=== PATIENT | female | born 1990 | race Caucasian/White ===

== ENCOUNTER 2016-11-02 16:45 | Inpatient (IN) | payer BC ==
[~2016-11-02] VITALS: Ht 170.2 cm; Wt 112.0 kg
[2016-11-02 17:30] LABS: HEMOGLOBIN 14.2 gm/dl (12.3-15.3); RED BLOOD COUNT 4.68 M/UL (4.00-5.10); WHITE BLOOD COUNT 11.6 K/UL (4.5-11.0)
[2016-11-04 03:03] LABS: HEMOGLOBIN 12.5 gm/dl (12.3-15.3)
[2016-11-05] MEDS ORDERED: TRANDATE 200 M200 MG PO (11:09)
== END 2016-11-05 14:12 | disposition home or self-care (01) | DRG 775 ==
LOC: OB 16:45
PROVIDERS: Obstetrics & Gynecology; ADMIT Obstetrics & Gynecology
PROC: 10E0XZZ Delivery of Products of Conception, External Approach (ICD-10-PCS; principal; 2016-11-03)
PROC: 0KQM0ZZ Repair Perineum Muscle, Open Approach (ICD-10-PCS; 2016-11-03)
PROC: 0U7C7ZZ Dilation of Cervix, Via Natural or Artificial Opening (ICD-10-PCS; 2016-11-03)
PROC: 3E033VJ Introduction of Other Hormone into Peripheral Vein, Percutaneous Approach (ICD-10-PCS; 2016-11-03)
PROC: 10907ZC Drainage of Amniotic Fluid, Therapeutic from Products of Conception, Via Natural or Artificial Opening (ICD-10-PCS; 2016-11-03)
DX: O13.4 Gestational [pregnancy-induced] hypertension without significant proteinuria, complicating childbirth (principal); O70.1 Second degree perineal laceration during delivery; Z3A.38 38 weeks gestation of pregnancy; Z37.0 Single live birth
CPT/HCPCS: 36415; 51702; 81001; 82800; 82962; 85014; 85018; 85025; 85461; 86900; 86901; 90715; J2590; J2795; J3010; J3430; J7120

== ENCOUNTER 2021-09-05 08:07 | Inpatient (IN) | payer BC ==
[~2021-09-05] VITALS: Ht 170.2 cm; Wt 108.4 kg
[~2021-09-05 08:07] MED LIST: TRANDATE 200 M200 MG PO
[2021-09-05 09:52] LABS: HEMOGLOBIN 12.4 gm/dl (12.3-15.3); RED BLOOD COUNT 4.1 M/UL (4.00-5.10); WHITE BLOOD COUNT 7.8 K/UL (4.5-11.0)
[2021-09-06] MEDS ORDERED: HEMOCYTE324 MG PO ×2 (10:55→15:09)
[2021-09-06] MEDS ORDERED: IBUPROFEN800 MG PO ×2 (10:55→15:09)
[2021-09-06] MEDS ORDERED: COLACE100 MG PO ×2 (10:55→15:09)
[2021-09-06] MEDS ORDERED: BACTRIM DS TAB1 EACH PO ×2 (10:55→15:09)
[2021-09-07 06:09] LABS: HEMOGLOBIN 11.9 gm/dl (12.3-15.3)
== END 2021-09-07 12:03 | disposition home or self-care (01) | DRG 805 ==
LOC: GENOP 08:07 → OB 09:54
PROVIDERS: Obstetrics & Gynecology; ADMIT Obstetrics & Gynecology
PROC: 4A1HXCZ Monitoring of Products of Conception, Cardiac Rate, External Approach (ICD-10-PCS; 2021-09-05)
PROC: 10E0XZZ Delivery of Products of Conception, External Approach (ICD-10-PCS; principal; 2021-09-06)
PROC: 10907ZC Drainage of Amniotic Fluid, Therapeutic from Products of Conception, Via Natural or Artificial Opening (ICD-10-PCS; 2021-09-06)
DX: O13.4 Gestational [pregnancy-induced] hypertension without significant proteinuria, complicating childbirth (principal); U07.1 COVID-19; Z37.0 Single live birth; O98.52 Other viral diseases complicating childbirth; Z3A.37 37 weeks gestation of pregnancy; O69.1XX0 Labor and delivery complicated by cord around neck, with compression, not applicable or unspecified; O70.0 First degree perineal laceration during delivery; Z53.29 Procedure and treatment not carried out because of patient's decision for other reasons; F41.9 Anxiety disorder, unspecified; O99.344 Other mental disorders complicating childbirth; Z88.1 Allergy status to other antibiotic agents; Z91.030 Bee allergy status; Z98.890 Other specified postprocedural states
CPT/HCPCS: 36415; 81001; 85014; 85018; 85025; 85461; 86850; 86870; 86900; 86901; J0595; J2590; J2790; J7120